=== PATIENT | female | born 1970 | race Caucasian/White ===

== ENCOUNTER → 2016-12-28 | Outpatient (CLI) | payer OTHER ==
[~2016-12-28] MED LIST: ALPR-138 PO; ALPR.25 PO
[2016-12-28 11:18] LABS: AUTOMATED NEUTROPHIL # 4.6 TH/MM3 (1.8-7.7); BASOPHIL % 0.6 % (0.0-2.0); EOSINOPHIL # 0.2 TH/MM3 (0-0.4); EOSINOPHIL % 2.6 % (0.0-4.0); HEMATOCRIT 38.7 % (35.0-46.0); HEMO FLAGS DIFF FINAL; LYMPH % 29.3 % (9.0-44.0); LYMPHOCYTE # 2.2 TH/MM3 (1.0-4.8); MEAN CELL VOLUME 93.4 FL (80.0-100.0); MEAN CORPUSCULAR HGB CONC 35.4 % (32.0-36.0); MONO % 7.6 % (0.0-8.0); NEUT % 59.9 % (16.0-70.0); PLATELET COUNT 178 TH/MM3 (150-450); RED BLOOD COUNT 4.14 MIL/MM3 (4.00-5.30); RED CELL DISTRIBUTION WIDTH 12.8 % (11.6-17.2); WHITE BLOOD COUNT 7.7 TH/MM3 (4.0-11.0)
[2016-12-28 11:34] LABS: BACTERIA, URINE OCC /hpf; BLOOD, URINE NEG (NEG); GLUCOSE,URINE NEG (NEG); KETONE, URINE NEG (NEG); MUCUS URINE FEW /lpf (OCC); NITRITE,URINE NEG (NEG); PH, URINE 6.5 (5.0-8.5); SQUAMOUS EPITHELIAL CELL URINE 5 /hpf (0-5); URINE COLOR LIGHT-YELLOW (YELLW/STRAW)
[2016-12-28 11:45] LABS: ANION GAP 5 MEQ/L (5-15); BICARBONATE 27.2 MEQ/L (21.0-32.0); BLOOD UREA NITROGEN 12 MG/DL (7-18); CHLORIDE 106 MEQ/L (98-107); GLOMERULAR FILTRATION RATE 81 ML/MIN (>89); GLUCOSE,FASTING 85 MG/DL (74-99); POTASSIUM 4.6 MEQ/L (3.5-5.1); SODIUM (NA) 138 MEQ/L (136-145)
[2016-12-28 11:52] LABS: BHCG SCREEN QUALITATIVE LESS THAN 1 MIU/ML (0-5)
== END ==
LOC: CPRE 10:11
PROVIDERS: ATTEND Obstetrics & Gynecology
DX: Z01.812 Encounter for preprocedural laboratory examination (principal); D25.9 Leiomyoma of uterus, unspecified
CPT/HCPCS: 80048; 81001; 84703; 85025

== ENCOUNTER → 2017-01-05 | Day surgery (SDC) | payer OTHER ==
[~2017-01-05] VITALS: Ht 152.4 cm; Wt 61.2 kg
[~2017-01-05] MED LIST changes: +ACETAMINOPHEN 1000 MG/100 ML VIAL IV ONE; -ALPR-138 PO; +APREPITANT 40 MG CAP PO SCH; +ARTIFICIAL TEARS OPTH OINT 3.5 APPLIC/3.5 GM TUBO ONE; +BUPIVACAINE HCL PF 0.25% 30 ML VIAL ONE; +CHLORHEXIDINE GLUCONATE 2 % 1 PACK (2 CLOTHS) TOPICAL PRN; +DEXAMETHASONE SOD PHOS 4 MG/ML VIAL ONE; +DO NOT ADM ANY ANTICOAGULANT DRUGS PRN; +DOCUSATE SODIUM 100 MG CAP PO SCH; +FAMOTIDINE 20 MG/2 ML VIAL ONE; +HYDROmorphone HCL PF 1 MG/ML VIAL IVP PRN; +HYDROmorphone HCL PF 2 MG/ML VIAL ONE; +IBUPROFEN 600 MG TAB PO PRN; +INSULIN HUMAN REGULAR 1,000 UNITS/10 ML VIAL SQ PRN; +KETOROLAC TROMETHAMINE 30 MG/ML (IVP) VIAL IV PUSH ONE; +KETOROLAC TROMETHAMINE 30 MG/ML (IVP) VIAL IVP PRN; +LACTATED RINGER'S 1000 ML INJ 1,000 ML IV SCH; +LACTATED RINGER'S 1000 ML IV PRN; +METOPROLOL TARTRATE 25 MG TAB PO PRN; +MIDAZOLAM HCL 2 MG/2 ML VIAL ONE; +NEOSTIGMINE 3 MG/3 ML SYR IV ONE; +NORMOSOL R INJ 1,000 ML IV ONE; +ONDANSETRON HCL 4 MG/2 ML VIAL IV PUSH ONE; +ONDANSETRON HCL 4 MG/2 ML VIAL IVP PRN; +POVIDONE IODINE 5% (ANTISEPSIS KIT) 4 APPLICATIONS EACH NARE PRN; +PROMETHAZINE INJ 25 MG/ML VIAL IM PRN; +PROPOFOL 200 MG/20 ML AMP IV ONE; +SODIUM CHLORID 0.9% 500 ML IV PRN; +SODIUM CHLORIDE 0.9% FLUSH 10 ML FLUSH IV FLUSH PRN; +SODIUM CHLORIDE 0.9% FLUSH 10 ML FLUSH IV FLUSH SCH; +SUGAMMADEX SODIUM 200 MG/2 ML VIAL IV PUSH ONE; +ceFAZolin 2 GM PREMIX 50 ML IV SCH; +diphenhydrAMINE HCL 25 MG CAP PO PRN; +fentaNYL CITRATE 250 MCG/5 ML AMP ONE; +oxyCODONE/ACETAMINOPHEN 5 MG/325 MG TAB PO PRN
[2017-01-05 06:35] VITALS: BP 132/80; PULSE 84; RESP 18; TEMP 97.9; O2SAT 99
--- NOTE | 2017-01-05 12:39 | MP ---
cc: MERLIN LADD M.D., ALFONZA MD DATE OF SURGERY: 01/05/2017 PREOPERATIVE DIAGNOSIS Symptomatic uterine fibroids, pelvic pain, dysmenorrhea. PROCEDURE Total laparoscopic hysterectomy with robotic-assisted bilateral salpingectomy. POSTOPERATIVE DIAGNOSIS Symptomatic uterine fibroids, pelvic pain, dysmenorrhea. SURGEON Mustapha ANESTHESIA General with endotracheal intubation. ESTIMATED BLOOD LOSS 50 cc. DRAINS Lin to gravity. OPERATIVE FINDINGS The patient had an enlarged uterus that was a multilobulated uterus, approximately 14-week size. The ovaries were normal bilaterally as were the fallopian tubes. There was no other pelvic pathology identified. INDICATION FOR PROCEDURE The patient had previous endometrial ablation developing cyclical pelvic pain and dysmenorrhea. Ultrasound revealed an enlarged multilobulated uterus with transmural fibroids identified, largest measuring 7 cm. The patient opted for hysterectomy as her surgical option. Consent was signed. The patient received Ancef 2 grams prophylactically. She underwent general anesthesia with endotracheal intubation. She was carefully positioned in the dorsal lithotomy position using Ismael stirrups on the lower extremities. She had sequentials placed on the lower extremities for VTE prophylaxis as well. After she was prepped and draped a timeout was conducted and agreed by all present in the room. The procedure continued by placing a Lin catheter under sterile technique draining clear urine. A bivalve speculum was used to examine the cervix which was small. A small VCare device was used placing the VCare device into the uterine cavity without complication. After dilating the cervix the retractor was removed, gloves were changed. The abdomen was examined. She had a previous Pfannenstiel incision from a section which was well-healed. The umbilical port was chosen first using 0.25% plain Marcaine to inject the incision site which was used on all incision sites. A 5 mm visible port trocar was placed into the peritoneal cavity under direct vision without complication. Two liters of CO2 were insufflated at low pressure and the patient was placed in Trendelenburg positioning. Evaluation and visualization of the pelvic anatomy was as described above. The uterus was large, 14-week size and multilobulated. The adnexa were normal. Continuation of the trocars were placed using two 8 mm trocars on the right flank and one on the left. The umbilical port was then changed to a 12 mm camera port. The [facility] patient cart was side docked with a #2 arm on the left and #1 and 3 on the right. A 30-degree lens was used. Monopolar nelia were attached to the #2 arm and a bipolar fenestrated grasper was used on the #1 arm with a fenestrated grasper on the #3 arm. No collisions were noted. Good articulation was noted. Attention was directed to the patient cart where visualization of the anatomy again was confirmed. Dissection was initiated by dividing the round ligament on the left and dissecting down to take the broad ligament anteriorly away from the lower uterine segment and communicating and connecting that with the contralateral side on the right. All pedicles were made hemostatic using bipolar energy. The retroperitoneal space was dissected on the left. This allowed isolation of the adnexa. The patient's decision was to leave the ovaries if intact. The fallopian tubes were removed in a standard fashion opening the mesentery and cauterizing any active bleeding and allowing the fallopian tubes to be left intact with the uterine corpus. The ureters were easily visualized and well out of the operative field. They were not part of any dissection. They were peristalsing normally throughout. The uterine artery and vein were skeletonized on the left side hemostatically and then the contralateral side was dissected in the same fashion allowing salvage of the ovary, removal of the fallopian tube and ligation of the uterine artery and vein. Due to the large volume of the uterus before the colpotomy incision was made the uterus was bivalved down to the level of the cervix. Once this was complete this was conducted using monopolar energy without difficulty or complication. The colpotomy incisions were then made using the monopolar scissors allowing removal of the uterine specimen through the vaginal opening by the therapy assistant and complete removal of the specimen was accomplished without difficulty. The vaginal cuff was intact. A #1 Stratafix suture was then utilized placing it at the left angle incorporating the vaginal angle and then closing the cuff in a linear fashion to the contralateral side. The integrity of the closure was tested by the therapy assistant using a sponge stick gently pushing against the closure. Good integrity was noted. There was no defect. There was no hematoma. No active bleeding was noted. The suture needle was trimmed. The suture was cut flush with the level of the peritoneum and then the needle was secured to be removed at the completion of the case. Again no active bleeding was noted. Clear urine drained through the Lin throughout the case. The [facility] patient cart was then undocked and then a straight laparoscopy was used to retrieve the suture needle. Copious irrigation was used to clear the pelvis. There was no active bleeding, no hematoma. After confirmation of hemostasis and retrieval of all free fluid, the umbilical port was closed with a CrossBow device with a #1 Vicryl suture. Good result was noted. This allowed decompression of the pneumoperitoneum, evacuation of all air was complete, removing the trocars intact and then closing the incisions on the skin with a subcuticular stitch of 4-0 Monocryl and placing Steri-Strips over the incision. Again, no active bleeding was noted. The vaginal cuff was intact and dry. The patient was extubated and taken to the recovery room on room air. The final count was correct. MD TARA Tom/PROSPER /10:50 AM /12:25 PM
[2017-01-05 13:14] VITALS: BP 125/73; PULSE 83; RESP 16; TEMP 97; O2SAT 98
== END | disposition home or self-care (01) ==
LOC: HSDC 05:58
PROVIDERS: ATTEND Obstetrics & Gynecology
DX: D25.9 Leiomyoma of uterus, unspecified (principal); N94.6 Dysmenorrhea, unspecified; R10.2 Pelvic and perineal pain
CPT/HCPCS: 00840; 58552; 86850; 86900; 86901; 88307; J0131; J0690; J1100; J1170; J1885; J2250; J2405; J2550; J2710; J3010; J7120; J8501